=== PATIENT | female | born 1950 | race Caucasian/White ===

== ENCOUNTER 2016-07-19 16:32 | Emergency (ER) | payer MEDICARE ==
[~2016-07-19] VITALS: Ht 157.5 cm; Wt 52.3 kg
[~2016-07-19 16:32] MED LIST: ASPI81TA2 PO; CARV25T PO; CLOP75TA14 PO; GABA600T PO; LOVA40TA PO; MULT-892 PO; OXYC-176 PO
[2016-07-19 17:40] VITALS: BP 137/81; PULSE 73; RESP 20; O2SAT 94
--- NOTE | 2016-07-19 19:29 | ED.REPORT ---
HPI-Dyspnea / Wheezing Date of Service Jul 19, 2016 ED Provider: Sung Roca MD Pt is a 65 y/o female w/ a hx of COPD, HTN, current every day smoking, presenting to the ED c/o SOB onset 4 days ago. The patient saw her PCP 2 weeks ago due to cough and dyspnea and was treated for community acquired pneumonia with a z-pack after positive chest x-ray. The patient has continued to be short of breath with a dry cough, chills, wheezing. Pt denies fever, nausea, vomiting , diarrhea. The patient had a 1 week episode of hemoptysis in May which was not evaluated at that time. Her COPD is treated only with an albuterol inhaler as needed. She also had an abscess on her posterior scalp that was treated a few days ago at [facility]. She was placed on Clindamycin for that skin infection. Nursing Notes Stated Complaint: POSS PNEUMONIA Chief Complaint: Respiratory Complaints Nursing Notes Reviewed: Yes Allergies: Coded Allergies: codeine (Verified Adverse Reaction, Intermediate, nausea and vomiting, 25/04) hydrochlorothiazide (Verified Adverse Reaction, Intermediate, hyponatremia , 03/25/11) Uncoded Allergies: crab (Allergy, Severe, swelling, 03/25/11) Scheduled Aspirin-Expunged Drug, Do Not Renew! (Aspirin-Expunged Drug, Do Not Renew!) 81 Mg Tablet 81 MG PO DAILY Carvedilol-Expunged Drug, Do Not Renew! (Carvedilol-Expunged Drug, Do Not Renew! ) 25 Mg Tablet 25 MG PO BID Clopidogrel-Expunged Drug, Do Not Renew! (Plavix-Expunged Drug, Do Not Renew!) 75 Mg Tablet 75 MG PO DAILY Gabapentin-Expunged Drug, Do Not Renew! (Neurontin-Expunged Drug, Do Not Renew! ) 600 Mg Tablet 600 MG PO BID AM & NOON Gabapentin-Expunged Drug, Do Not Renew! (Neurontin-Expunged Drug, Do Not Renew! ) 600 Mg Tablet 900 MG PO HS Lovastatin-Expunged Drug, Do Not Renew! (Lovastatin-Expunged Drug, Do Not Renew! ) 40 Mg Tablet 40 MG PO DAILY Multivitamin (Daily Value) 1 Each Tablet 1 EACH PO DAILY Oxycodone/APAP-Expunged Drug, Do Not Renew! (Percocet 5/325-Expunged Drug, Do Not Renew!) 1 Each Tablet 1 TAB PO PRN Prednisone (PredniSONE) 20 Mg Tablet 40 MG PO DAILY General Time Seen by MD: 19:27 Chief Complaint Shortness of breath Hx Obtained From: Patient Arrived By: Walk-in Sudden in Onset?: No Onset Occurred: 3 days ago Symptom Duration: Since onset Severity: Current: No pain currently Severity: Maximum: No pain Recent Healthcare: Previous diagnosis Similar Sx Previous: Yes Past Medical History Past Medical History Hypertension COPD Anxiety Depression Past Surgical History Partial hysterectomy Neck Tubal ligation "Stent placed in leg" Smoking History Current Every Day Smoker Social History Drug Use: Denies drug use Ambulatory Status Independent Review of Systems Constitutional: Reports: Chills, Denies: Fever Respiratory: Reports: Non-productive cough, Shortness of breath, Wheezing Cardiovascular: Denies: Chest pain Complete sys rev & neg: except as marked. GI: Denies: Diarrhea, Nausea, Vomiting Physical Exam Initial Vital Signs Vital Signs (First) Date Time Temp Pulse Resp B/P Pulse Ox O2 Delivery O2 Flow Rate FiO2 07/19/16 17:40 36.3 73 20 137/81 94 Room Air Initial VS: Reviewed, Vital signs normal Head / Eyes: Atraumatic, Normocephalic, PERRL ENT: Mucous membranes moist, Conjunctiva normal, No scleral icterus Abdomen / GI: Soft, Non-tender Extremities: Vascular intact, Neuro intact, No swelling, No tenderness Skin: Warm, Dry, No cyanosis Neurologic: Alert, Oriented, Nonfocal Psychiatric: Mood/affect normal, Behavior normal, Normal thought content General/Constitutional: Awake, Alert, No acute distress, Cooperative, Not toxic appearing Neck: Atraumatic, Supple, No meningismus, Full range of motion Respiratory / Chest: Atraumatic, No respiratory distress, No retractions, No stridor, No chest tenderness, No chest wall deformity, No crepitus Faint inspiratory wheezing Distant lung sounds No dullness to percussion Cardiovascular: Heart rate NL, Regular rhythm, Heart sounds NL, No gallop, No murmurs, No rubs, Cap refill not delayed, Peripheral circulation NL Interpretation & Diagnostics X-Ray Chest Interpretation View: Portable, AP & lat Interpretation / Wet Read by: Wet read ED physician Reviewed Previous Films: No change NL X-Ray Chest Findings: No acute disease Re-Eval/Medical Decision Med Decision/Clinical Course Albuterol prescription written as well. Re-Evaluation/Progress : Time of Eval: 20:51 Re-Evaluation/Progress Note: Pt rechecked. Informed pt of plan for treatment. Pt understands and agrees with plan for treatment. F/U instructions and RTER warnings given. All questions addressed. Counseled Regarding: Diagnosis, Need for follow-up, When/why to return to ED Discharge & Departure Impression: Primary Impression: COPD exacerbation Disposition: Home Discharge Condition All VS Reviewed: Yes Condition: Stable Patient Instructions: Emphysema (ED) Additional Instructions: If you do not quit smoking you should expect your cigarette smoking to kill you. I believe that your symptoms are more likely from exacerbation of your COPD than new or undertreated pneumonia. Your chest x-ray does not show convincing pneumonia and is no worse than it was last week. Take prednisone 40 mg a day for 5 days. Follow-up at the clinic Monday or Monday to reassess. Call for an appointment tomorrow. Referrals: Abbey Jonas (PCP) Steveibe Attestation Portions of this note were transcribed by Akil Burns. I, Dr. Roca personally performed the history, physical exam and medical decision-making; I reviewed and confirmed the accuracy of the information in the transcribed note. Signed by Kassidy Robbins, 07/19/161939 copies to: Abbey Jonas Kirk H MD Jul 19, 2016 19:29 AKIL BURNS Jul 19, 2016 19:40
[2016-07-19] MEDS ORDERED: PRE20 PO (20:50)
[2016-07-19] MEDS ORDERED: predniSONE 20 mg Tablet PO ONE (20:50)
[2016-07-19 21:10] VITALS: BP 137/88; PULSE 70; RESP 16; O2SAT 95
[2016-07-19 21:16] VITALS: BP 1/88; PULSE 70; RESP 16; O2SAT 95
--- NOTE | 2016-07-19 21:28 | DRSVH ---
PROCEDURE: X-RAY CHEST, TWO VIEWS ([id number]) INDICATIONS: dyspnea TECHNIQUE: 2 views of the chest were acquired. COMPARISON: [facility], CR, XR CHEST 2VW, 07/01/2016, 16:09. [facility], C R, CHEST 2VW, 08/29/2013, 10:36. [facility], CR, XR CHEST 2VW, 07/13/2016, 9:29. FINDINGS: Surgical changes and devices: Lower cervical spine fusion. Lungs and pleura: Right basilar opacity may be consolidation or atelectasis. It appears unchanged fr om 07/13/1016. No pleural effusions or pneumothorax. Mediastinum: Mediastinal contours are normal. Heart size is normal. Bones and chest wall: No suspicious bony abnormalities. Soft tissues appear unremarkable. IMPRESSION: Stable right basilar opacity may be consolidation or atelectasis. Dictated by: Beverly Florentino M.D. on 07/19/2016 at 21:25 Approved by: Beverly Florentino M.D. on 07/19/2016 at 21:26
[2016-08-25] MEDS ORDERED: CARB1TAB14 PO (13:17)
[2016-08-25] MEDS ORDERED: ATOR80TA PO (13:17)
[2016-08-25] MEDS ORDERED: AGM875T PO (13:17)
[2016-08-25] MEDS ORDERED: PRE20 PO (13:17)
[2016-08-25] MEDS ORDERED: ALBU8.5H2 INHALATION (13:17)
[2016-08-31] MEDS ORDERED: PRE20 PO (08:07)
[2016-08-31] MEDS ORDERED: ASPI-973 PO (08:07)
[2016-08-31] MEDS ORDERED: ALBU2.5V4 INHALATION (08:07)
[2016-08-31] MEDS ORDERED: ATOR80TA PO (08:07)
[2016-08-31] MEDS ORDERED: CHOL5000 PO (08:07)
[2016-08-31] MEDS ORDERED: CARV25TA2 PO (08:07)
[2016-08-31] MEDS ORDERED: GABA600T2 PO (08:07)
[2016-08-31] MEDS ORDERED: MULT-1018 PO (08:07)
[2016-08-31] MEDS ORDERED: AGM875T PO (08:07)
[2016-08-31] MEDS ORDERED: ALBU8.5H2 INHALATION (08:07)
[2016-08-31] MEDS ORDERED: CYAN250014 PO (08:07)
[2016-08-31] MEDS ORDERED: TIOT4MIS5 IH (08:07)
[2016-08-31] MEDS ORDERED: CLOP75TA3 PO (08:07)
[2016-09-09] MEDS ORDERED: CARBIDOPA-LEVODOPA PO (17:10)
[2016-09-09] MEDS ORDERED: TIOT4MIS2 IH (17:10)
[2016-09-09] MEDS ORDERED: AGM875T PO (17:10)
[2016-09-09] MEDS ORDERED: PRE20 PO (17:10)
[2016-09-20] MEDS ORDERED: CARB1TAB14 PO (07:40)
[2016-09-20] MEDS ORDERED: ONDA-54 PO (07:40)
[2016-09-21] MEDS ORDERED: LORA0.5T PO (09:24)
[2016-09-23] MEDS ORDERED: ASPI-973 PO (12:13)
[2016-09-23] MEDS ORDERED: CLOP75TA3 PO (12:13)
[2016-10-04] MEDS ORDERED: ROPI0.252 PO (09:56)
== END 2016-07-19 21:18 | disposition home or self-care (01) ==
LOC: SED 16:32
DX: J44.1 Chronic obstructive pulmonary disease with (acute) exacerbation (principal); I10 Essential (primary) hypertension; J45.909 Unspecified asthma, uncomplicated; F17.200 Nicotine dependence, unspecified, uncomplicated; Z87.01 Personal history of pneumonia (recurrent); Z87.2 Personal history of diseases of the skin and subcutaneous tissue; Z79.82 Long term (current) use of aspirin; Z88.8 Allergy status to other drugs, medicaments and biological substances; Z88.5 Allergy status to narcotic agent
CPT/HCPCS: 71020; 99284; G0463

== ENCOUNTER 2016-09-01 11:12 | Day surgery (SDC) | payer MEDICARE ==
[~2016-09-01] VITALS: Ht 157.5 cm; Wt 49.9 kg
[~2016-09-01 11:12] MED LIST changes: +AGM875T PO; +ALBU2.5V4 INHALATION; +ALBU8.5H2 INHALATION; +ASPI-973 PO; -ASPI81TA2 PO; +ATOR80TA PO; -CARV25T PO; +CARV25TA2 PO; +CHOL5000 PO; -CLOP75TA14 PO; +CLOP75TA3 PO; +CYAN250014 PO; -GABA600T PO; +GABA600T2 PO; -LOVA40TA PO; +MULT-1018 PO; -MULT-892 PO; -OXYC-176 PO; +PRE20 PO; +TIOT4MIS5 IH
[2016-09-01] MEDS ORDERED: EPINEPHrine 0.1 mg/mL 10 mL Syringe IV ONE (11:13)
[2016-09-01 11:51] VITALS: BP 103/66; PULSE 72; RESP 16; O2SAT 96
[2016-09-01] MEDS ORDERED: 0.9% Sodium Chloride 1,000 ML IV SCH (12:00)
[2016-09-01] MEDS ORDERED: Lidocaine PF 2% 5 mL Inj MUC_MEMBRM PRN (12:00)
[2016-09-01] MEDS ORDERED: Lidocaine PF 2% 5 mL Inj MUC_MEMBRM SCH (12:00)
[2016-09-01] MEDS ORDERED: Lidocaine Topical 2% 30 mL Jelly MUC_MEMBRM PRN (12:00)
[2016-09-01] MEDS ORDERED: Lidocaine PF 2% 10 mL Inj ONE (12:00)
[2016-09-01] MEDS ORDERED: fentaNYL-PF 50 mCg/mL 2 mL Inj IVPUSH PRN (12:00)
[2016-09-01 12:46] VITALS: BP 105/64; PULSE 88; RESP 16; O2SAT 91
[2016-09-01 12:56] VITALS: BP 93/63; PULSE 83; RESP 14; O2SAT 94
[2016-09-01 13:06] VITALS: BP 101/68; PULSE 85; RESP 16; O2SAT 92
[2016-09-01 13:15] VITALS: BP 108/69; PULSE 73; RESP 16; O2SAT 93
--- NOTE | 2016-09-01 15:05 | DRSVH ---
PROCEDURE: X-RAY CHEST ONE VIEW, PORTABLE ([id number]) INDICATIONS: R/O PNEUMOTHORAX TECHNIQUE: One view of the chest was acquired. COMPARISON: [facility], CR, XR CHEST 2VW, 07/19/2016, 20:24. FINDINGS: Surgical changes and devices: Cervical fixation plates. Lungs and pleura: No pleural effusions or pneumothorax. Lungs are clear. Mediastinum: Mediastinal contours appear normal. Heart size is normal. Bones and chest wall: No suspicious bony lesions. Overlying soft tissues appear unremarkable. IMPRESSION: No acute pulmonary process. Dictated by: Mahogany Barcenas M.D. on 09/01/2016 at 13:59 Approved by: Mahogany Barcenas M.D. on 09/01/2016 at 14:03
--- NOTE | 2016-09-02 00:51 | ENDO ---
[address] [address] ENDOSCOPY PROCEDURE PATIENT: MERLINE VARGAS : 1950 MR#: [id number] ADMIT: 09/01/2016 JOB ID: [id number] DATE OF SERVICE: 09/01/2016 PROCEDURE PERFORMED:Bronchoscopy with biopsies Performed by: by Lucrecia Corea MD, Pulmonary Medicine. INDICATION: Right lower lobe lung mass. Informed consent was obtained from the patient after risks and benefits of the procedure including pneumothorax and bleeding were discussed. The patient had stopped her Plavix seven days prior to the procedure as discussed at her outpatient visit. DESCRIPTION OF PROCEDURE: The patient was asked to gargle lidocaine. Additional lidocaine was administered via atomizer. IV sedation was then administered. Bite block was placed and scope was passed through the mouth. Epiglottis and vocal cords were visualized and normal in appearance. There is a small white patch on the right vocal cord that is not of any significance. Additional lidocaine was administered and scope was passed through the cords into the trachea. Trachea was normal in appearance as was pratibha. A complete bilateral airway inspection was performed. Left-sided airways were completely normal in appearance and patent without any endobronchial lesions or masses. On the right side, however, immediately in the right main stem, there was significant airway occlusion visible. There was a friable appearing mass protruding into the bronchus intermedius that seemed to almost extend up to the right upper lobe and cause near-complete occlusion. The scope could not be passed through the bronchus intermedius or into the right upper lobe because of this mass. We then proceeded to do biopsies of this. At least 10-14 good sized biopsy samples were obtained with some bleeding as expected. Bleeding subsided with recurrent doses of topical epinephrine solution. The patient tolerated the procedure reasonably well except for coughing which is expected. FINDINGS: Large endobronchial mass occluding the bronchus intermedius and partly occluding the right upper lobe airway. SAMPLES: 10-12 endobronchial biopsies of the mass obtained. Medications: MIdazolam 3mg Fentanyl 75 Mcg Epinephringe 4cc topical COMPLICATIONS: Coughing. BLEEDING: Less than 10 cc. Postprocedure chest x-ray is pending at this time. [facility]
--- NOTE | 2016-09-05 14:54 | PATH ---
SURGICAL PATHOLOGY Attending Physician:Lucrecia Corea MD CASE STATUS: Signed Out PATIENT NAME: MERLINE VARGAS PID: [id number] : 1950 DATE COLLECTED:09/01/2016 21:45 SPECIMEN: Lung Biopsy CLINICAL HISTORY: RIGHT LOWER LOBE, LUNG MASS SMOKER WITH LUNG MASS; HIGH SUSPICION MALIGNANCY 1). RIGHT LOWER LOBE LUNG BIOPSIES FINAL DIAGNOSIS: 1.RIGHT LOWER LOBE, LUNG MASS, BIOPSY: NEUROENDOCRINE (SMALL CELL) CARCINOMA. ICD10 CODE C34 GROSS DESCRIPTION: The specimen is received in one formalin filled container labeled with the patient's name, sublabeled "right lower lobe of lung" and consists of multiple portions of tissue which aggregate to 0.5 x 0.5 x 0.2 CM. The specimen is entirely submitted in one cassette. 09/01/2016 [facility] MICRO DESCRIPTION: Solid nests of small to medium-sized malignant cells infiltrate the pulmonary parenchyma. Immuncytochemistry is done to characterize the tumor. Sections, along with appropriate controls, are incubated with the following antibodies: Synaptophysin:Positive Chromogranin:Positive CK7:Positive P40:Negative CK5/6:Negative CK20:Negative The findings are consistent with neuroendocrine carcinoma. This test was developed and its performance characteristics determined by [employer]. It has not been cleared or approved by the U. S. Food and Drug Administration. The FDA has determined that such clearance or approval is not necessary. This test is used for clinical purposes. It should not be regarded as investigational or for research. ICD-9 CODES: CPT CODES: 1: 43101, 28693, 42600, 12762, 27739, 95985, 21297 Electronically Signed Out Tommy Samano MD [facility] [address], [place] [address] Technical component performed at [facility], [address], [place], [address]
[2016-09-09] MEDS ORDERED: CARBIDOPA-LEVODOPA PO (17:10)
[2016-09-09] MEDS ORDERED: TIOT4MIS2 IH (17:10)
[2016-09-09] MEDS ORDERED: PRE20 PO (17:10)
[2016-09-09] MEDS ORDERED: AGM875T PO (17:10)
[2016-09-20] MEDS ORDERED: ONDA-54 PO (07:40)
[2016-09-20] MEDS ORDERED: CARB1TAB14 PO (07:40)
[2016-09-21] MEDS ORDERED: LORA0.5T PO (09:24)
[2016-09-23] MEDS ORDERED: ASPI-973 PO (12:13)
[2016-09-23] MEDS ORDERED: CLOP75TA3 PO (12:13)
[2016-10-04] MEDS ORDERED: ROPI0.252 PO (09:56)
== END 2016-09-01 23:59 | disposition home or self-care (01) ==
LOC: END 11:12
PROVIDERS: ATTEND Internal Medicine Critical Care Medicine
DX: C34.31 Malignant neoplasm of lower lobe, right bronchus or lung (principal); Z87.891 Personal history of nicotine dependence; I73.9 Peripheral vascular disease, unspecified; I10 Essential (primary) hypertension; J44.9 Chronic obstructive pulmonary disease, unspecified; I65.29 Occlusion and stenosis of unspecified carotid artery; I44.7 Left bundle-branch block, unspecified; M19.90 Unspecified osteoarthritis, unspecified site; Z79.82 Long term (current) use of aspirin; Z79.02 Long term (current) use of antithrombotics/antiplatelets; Z79.51 Long term (current) use of inhaled steroids
CPT/HCPCS: 31625; 71010; 99153; G0500; J0171; J2250; J3010; J7030

== ENCOUNTER 2016-09-14 11:32 | Day surgery (SDC) | payer MEDICARE ==
[~2016-09-14] VITALS: Ht 157.5 cm; Wt 49.0 kg
[2016-09-14] VITALS (7 sets, daily range): BP systolic 160–181; BP diastolic 74–90; PULSE 63–70; RESP 12–16; O2SAT 92–100
[~2016-09-14 11:32] MED LIST changes: +CARBIDOPA-LEVODOPA PO; +CeFAZolin Inj 2 GM in IV Premix 1 EACH IV ONE; +TIOT4MIS2 IH; -TIOT4MIS5 IH
[2016-09-14] MEDS ORDERED: fentaNYL-PF 50 mCg/mL 2 mL Inj ONE (11:33)
[2016-09-14] MEDS ORDERED: Propofol 10,000 mCg/mL 20 mL Inj ONE (11:33)
[2016-09-14] MEDS ORDERED: Dexamethasone 4 mg/mL Inj ONE (11:33)
[2016-09-14] MEDS ORDERED: Lidocaine PF 1% 30 mL Inj ONE (11:33)
[2016-09-14] MEDS ORDERED: Ondansetron 2 mg/mL 2 mL Inj ONE (11:33)
[2016-09-14] MEDS: Lactated Ringer's 1,000 ML IV SCH ×2 (11:52→12:42)
[2016-09-14] MEDS ORDERED: OXYC5CAP4 PO (11:55)
[2016-09-14] MEDS ORDERED: POTA20TA7 PO (11:55)
[2016-09-14] MEDS ORDERED: CeFAZolin Inj 2 gm / 50mL D5W IV ONE (11:57)
--- NOTE | 2016-09-14 12:39 | PCM.HPANE ---
Patient Data Date of Service: Sep 14, 2016 Surgeon Admitting Provider: Attending Provider:Sanaz Farmer MD Primary Care Physician:Salima Smallwood Other Provider:Nikolay Boothe Anesthesia Reason for Visit Lung Cancer Ht/WT & BMI Height (Feet): 5 Height (Inches): 2 Weight (Kilograms): 48.988 Body Mass Index 19.00 Allergies Coded Allergies: morphine (Verified Allergy, Unknown, NAUSEA, 09/14/16) codeine (Verified Adverse Reaction, Severe, nausea and vomiting, 09/09/16) hydrochlorothiazide (Verified Adverse Reaction, Severe, hyponatremia, 09/09) Uncoded Allergies: crab (Allergy, Severe, swelling, 03/25/11) Past Anesthesia History Anesthesia History: Denies:: Abnormal Airway (RECENT HX PNEUMOTHORAX), Anesthesia Reactions, Difficult Intubation, Fam Anesthesia Reaction, Fam Malignant Hypertherm, Malignant Hyperthermia Diabetes History Hx Diabetes?: No MRSA MRSA: No Medications Blood Thinner: Aspirin, Plavix Home Meds Incl Beta Angel: Yes (COREG) Date Beta Angel Taken: Sep 14, 2016 Time Beta Angel Taken: 729 Reported Medications oxyCODONE 5 Mg Capsule5 Mg PO Q3H PRN For Pain Ref 0 09/14/16 Potassium Chloride ER (Klor-Con M20)20 Meq Ymftpt46 Meq PO DAILY Ref 0 09/14/16 [Carbidopa-Levodopa] No Conflict Check1 Tab PO HS 25-100 09/09/16 Albuterol HFA (Proair HFA)8.5 Gm Hfa.aer.ad2 Puffs INHALATION Q4H #1 INHALER 08/31/16 Clopidogrel Bisulfate (Plavix)75 Mg Jziebz25 Mg PO DAILY 30 Days Ref 0 08/31/16 Gabapentin 600 Mg Omesfu558 Mg PO TID Ref 0 08/31/16 Carvedilol 25 Mg Cyvpea95 Mg PO BID Ref 0 08/31/16 Atorvastatin (Lipitor)80 Mg Jrbwlk80 Mg PO DAILY Ref 0 08/31/16 Aspirin 81 Mg Iitbup05 Mg PO DAILY Ref 0 08/31/16 Albuterol Neb Soln 2.5 Mg/3 Ml Vial.neb2.5 Mg INHALATION Q4H PRN For Shortness of Breath Ref 0 08/31/16 Discontinued Reported Medications Amoxicillin/Clav K 875-125 mg 875 Mg Tab1 Tablet PO BID #20 TABLET Ref 0 09/09/16 Prednisone (PredniSONE)20 Mg Lrlauy21 Mg PO DAILY Ref 0 09/09/16 Tiotropium [place] (Spiriva Respimat)4 Gm Mist.inhal2 Puffs IH BID 09/09/16 Cholecalciferol (Vitamin D3) (Vitamin D3)5,000 Unit Capsule5,000 Unit PO DAILY 08/31/16 Cyanocobalamin (Vitamin B-12) (Vitamin B12)2,500 Mcg Tab.mmkm102 Mcg PO DAILY 08/31/16 Multivitamin (Multi Vitamin Daily)1 Each Tablet1 Each PO DAILY 30 Days Ref 0 08/31/16 History History of ENT Problems?: No HEENT History: Positive for:: Dysphagia Denies:: Abnormal Airway (RECENT HX PNEUMOTHORAX) Difficult Intubation Hearing Problem Hx of Heart Problems?: Yes Cardiovascular History: Positive for:: Hypertension (HYPERLIPIDEMIA) Peripheral Vascular (PADS/PVD) Denies:: AICD Atrial Fibrillation Chest Pain Congestive Heart Failure Heart Murmur Pacemaker Valvular Heart Disease Other Cardiac History: S/P LT COMMON ILIAC & LT SUPERFICIAL FEMORAL ARTERY ANGIOPLASTY/STENTING NON-CRITICAL B/L CAROTID STENOSIS C/OF BRUISING EASILY Hx of Respiratory Problem?: Yes Respiratory History: Positive for:: COPD (MOD. 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 (PSORIASIS) Denies:: Pressure Ulcers Hx Musculoskeletal Problems?: No Musculoskeletal History: Positive for:: Musculoskeletal Trauma (HX WORK- RELATED INJURY TO NECK) Osteoarthritis Denies:: Joint Replacement Hx of Psycho/Social Problems?: Yes Psycho Social History: Positive for:: Anxiety Hx Depression Hx Surgeries?: Yes (LLE VASCULAR ANGIOPLASTY W/ STENTING,CRANIOTOMY/CLIPPING X2 W/ POSTOP ABCES) Hx Any Other Health Problems?: Yes Other History: Positive for:: Cancer (RT LUNG CA W/ LIVER METS) Hospitalization Denies:: Endocrine Disease (COLD INTOLERANCE) Thyroid Disease History Blood Transfusions: Denies:: Blood Transfuse Reaction Blood Transfusions Hx Diabetes: No Hx Alcohol Use: Yes (QUIT)Alcoholic Drinks Per Day: BEERHx Substance Use: No Smoking Status: Light Tobacco Smoker Have You Smoked inLast 12 mo: YesApprox How Many Cigarettes/day: 1/2 PPD X 48YRS Stop/Bang S-Snoring: Do You Snore Loudly: No T-Tired: feel tired, fatigued: Yes O-Obsered: Observed not breath: No P-Blood Pressure: treated: Yes B- Body Mass Index > 35 kg/m2: No A- Age over 50: Yes N- Neck Large Circumference: No G- Gender Male: No SONALI Total Score: 3 SONALI Risk Assessment: High Risk, =/>3 Yes Risk Assessment Category Category 1A: Patient has history of documented sleep apnea, and HAS NOT received any narcotic, sedative or anesthesia administration during this stay. Category 1B: Patient has history of documented sleep apnea, and HAS received any narcotic , sedative or anesthesia administration during this stay Category 2: Patient has SUSPECTED Obstructive Sleep Apnea, and HAS received any narcotic , sedative or anesthesia administration during this stay. Category 3: Patient has SUSPECTED Obstructive Sleep Apnea and HAS NOT received narcotic, sedative or anesthesia administration during this stay. Category 4: Outpatient in Procedural Areas with known sleep apnea or who screen positive for High Risk via the STOP/BANG questionnaire. Exam Exam General Appearance: Alert, Oriented X3, Cooperative, Mild Distress HEENT/AIRWAY: MP 2, Neck Movement (very limited) Lungs: Diminished, Coarse Heart: Exam Unremarkable Meds/Labs/Diagnostics Admission Meds Current Medications Lactated Ringer's (Lr) 1,000 ml @ 120 mls/hr Q8H20M IV Last administered on t 11:52; Start 09/14/16 at 05:00; Stop 09/14/16 at 13:19 Plan Impression Patient chart reviewed, patient interviewed and anesthestic plan with risks, benefits, and alternatives discussed, and informed consent obtained. NPO Status: 15 09/14 Josue Aleman MD Sep 14, 2016 11:59
[2016-09-14] MEDS ORDERED: HepLOK Flush 100 unit/mL 5 mL Inj IVFLUSH ONE (12:42)
[2016-09-14] MEDS ORDERED: Bupivacaine-MPF 0.25%/EPI 30 mL Inj INJ ONE (12:42)
[2016-09-14] MEDS ORDERED: Lactated Ringer's 500 ML IV PRN (13:07)
[2016-09-14] MEDS ORDERED: Lactated Ringer's 1,000 ML IV SCH (13:07)
[2016-09-14] MEDS ORDERED: EPHEDrine Sulfate 50 mg/mL Inj IVPUSH PRN (13:10)
[2016-09-14] MEDS ORDERED: Ondansetron 2 mg/mL 2 mL Inj IVPUSH PRN (13:10)
[2016-09-14] MEDS ORDERED: Atropine 0.4 mg/mL Inj IVPUSH PRN (13:10)
[2016-09-14] MEDS ORDERED: Labetalol 5 mg/mL 4 mL Inj IV PRN (13:10)
[2016-09-14] MEDS ORDERED: MetoCLOpramide 5 mg/mL 2 mL Inj IVPUSH PRN (13:10)
[2016-09-14] MEDS ORDERED: Dexamethasone 4 mg/mL Inj IVPUSH PRN (13:10)
[2016-09-14] MEDS ORDERED: Phenylephrine 10,000 mCg/mL Inj IVPUSH PRN (13:10)
[2016-09-14] MEDS ORDERED: fentaNYL-PF 50 mCg/mL 2 mL Inj IVPUSH PRN (13:10)
[2016-09-14] MEDS ORDERED: HYDROmorphone 1 mg/mL Inj IVPUSH PRN (13:10)
[2016-09-14] MEDS ORDERED: Albuterol-Ipratropium 3 mL Inhalation Solution NEB PRN (13:10)
--- NOTE | 2016-09-14 13:57 | PCM.ANEP1 ---
Post Anesthesia Phase 1 PACU Phase 1 Assessment Date of Service: Sep 14, 2016 Vital Signs Vital Signs Date Time Temp Pulse Resp B/P Pulse Ox O2 Delivery O2 Flow Rate FiO2 09/14/16 13:50 36.6 66 14 175/87 100 Nasal Cannula 4 09/14/16 12:03 37.4 70 16 160/90 94 Room Air Anesthetic Administered: GA Level of Alertness: Drowsy, not talking Pain: No Nausea or Vomiting: No Oxygen Delivery: Nasal Cannula Lungs: Diminished, Coarse Josue Aleman MD Sep 14, 2016 13:57
[2016-09-14] MEDS ORDERED: oxyCODONE-Acetamin 5-325 mg Tablet PO PRN (14:00)
--- NOTE | 2016-09-14 14:04 | PCM.SURGOP ---
Surgical Operative Report Date of Service: Sep 14, 2016 Pre Operative Diagnosis Metastatic lung cancer Post Operative Diagnosis Metastatic lung cancer Procedure: Right internal jugular port placement with ultrasound guidance with interpretation, with fluoroscopic guidance with interpretation. Surgeon and Senior Back End Java Developer: Surgeon: Sanaz Farmer M.D. 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 Chemotherapy was initiated, and therefore port placement was indicated. Findings: The port tip was at the cavoatrial junction at the end of the procedure. The port aspirated and flushed easily. It was flushed with 10 mL of heparin solution, 100U/mL, at the end of the case. It was left accessed because she had another chemotherapy infusion scheduled for tomorrow. Procedure Details The patient was brought to the operating room and placed in supine position. General anesthesia with a LMA was smoothly induced. Antibiotics were infused. A warming blanket and SCDs were placed. A pause was performed to confirm the correct patient, procedure, site, and side. The right internal jugular vein was identified with the ultrasound. It was then accessed with a single stick, and a wire was threaded. Upon advancing the wire, there was a small amount of resistance. Therefore, the wire was withdrawn. A second stick was used and the vein was accessed again; no resistance was encountered. Fluoroscopy confirmed the wires presence on the right side of the heart. The position of the tip of the wire at the cavoatrial junction was measured. A pocket was made in the tissue overlying the right pectoralis. The port was inserted and sewn into place with two interrupted Prolene stitches. It was then tunneled to the site of the wire using a small counter incision. The port catheter was then cut to the appropriate size as previously measured by the wires position on fluoroscopy. Dilation was then performed under fluoroscopic guidance. The sheath was left in place and the catheter was inserted. The sheath was removed and the two sides were found to be completely intact. The tip of the port was found to be positioned at the cavoatrial junction on fluoroscopy. The catheter was not kinked on fluoroscopy. The port aspirated and flushed easily at the end of the case. It was infused with 10 mL of 100 units/mL heparin solution. The subcutaneous tissue overlying the port was closed with a 3-0 Vicryl stitch. The skin at the port site, the wire access site, and counter incision was closed with a 4-0 subcuticular Monocryl stitch. Marcaine 0.5% with epinephrine was injected in the skin overlying the port as well as the stick site. The port was left accessed with a Daugherty needle. A sterile dressing was placed. The patient tolerated the procedure well, and was awakened from general anesthesia and taken to the postoperative care unit in good condition. Complications There were no periprocedural complications identified. Surgical Specimen Removed: No Specimen sent to Pathology: No Anesthetic Plan: GA Grafts, Implants: Implants-See Implant Record Output, Estimated Blood Loss: 2 (ml) Blood Administration during louis: No Sanaz Farmer MD Sep 14, 2016 14:04
--- NOTE | 2016-09-14 14:23 | PCM.ANEP2 ---
Post Anesthesia Evaluation ASA/CMS Post Anesthesia Date of Service: Sep 14, 2016 VS in Patient's Normal Range?: Yes Resp Stable; Airway Patent?: Yes CV Function & Hydration Stable: Yes Mental Status Recovered?: Yes Pain control Satisfactory?: Yes N/V Control Satisfactory?: Yes Josue Aleman MD Sep 14, 2016 14:23
--- NOTE | 2016-09-14 15:41 | DRSVH ---
PROCEDURE: X-RAY CHEST ONE VIEW, PORTABLE ([id number]) INDICATIONS: PORT TECHNIQUE: One view of the chest was acquired. COMPARISON: [facility], CT, CT CHEST ABD PELVIS W CON, 09/09/2016, 15:15. [facility], CR, XR CHEST 1VW (PORTABLE), 09/01/2016, 13:21. FINDINGS: Surgical changes and devices: There is been interval right-sided port placement with distal tip overl georgi the distal SVC/right atrial junction. Partially visualized cervical fixation plates are noted. Lungs and pleura: There is a persistent appearance of hazy opacity within the right base. Mediastinum: Mediastinal contours appear normal. Heart size is normal. Bones and chest wall: No suspicious bony lesions. Overlying soft tissues appear unremarkable. IMPRESSION: Interval port placement as above. Persistent right basilar opacity corresponding to appa rent atelectatic lung as seen on 09/09/16 CT examination. Dictated by: Mahogany Barcenas M.D. on 09/14/2016 at 15:36 Approved by: Mahogany Barcenas M.D. on 09/14/2016 at 15:40
[2016-09-20] MEDS ORDERED: ONDA-54 PO (07:40)
[2016-09-20] MEDS ORDERED: CARB1TAB14 PO (07:40)
[2016-09-21] MEDS ORDERED: LORA0.5T PO (09:24)
[2016-09-23] MEDS ORDERED: ASPI-973 PO (12:13)
[2016-09-23] MEDS ORDERED: CLOP75TA3 PO (12:13)
[2016-10-04] MEDS ORDERED: ROPI0.252 PO (09:56)
== END 2016-09-14 23:59 | disposition home or self-care (01) ==
LOC: SAS 11:32
PROVIDERS: ATTEND Surgery
PROC: 02HV33Z Insertion of Infusion Device into Superior Vena Cava, Percutaneous Approach (ICD-10-PCS; 2016-09-14)
PROC: B5181ZA Fluoroscopy of Superior Vena Cava using Low Osmolar Contrast, Guidance (ICD-10-PCS; 2016-09-14)
PROC: 0JH60XZ Insertion of Tunneled Vascular Access Device into Chest Subcutaneous Tissue and Fascia, Open Approach (ICD-10-PCS; principal; 2016-09-14 13:30)
DX: C34.01 Malignant neoplasm of right main bronchus (principal); C78.7 Secondary malignant neoplasm of liver and intrahepatic bile duct; F17.210 Nicotine dependence, cigarettes, uncomplicated; J44.9 Chronic obstructive pulmonary disease, unspecified; I70.202 Unspecified atherosclerosis of native arteries of extremities, left leg; Z95.820 Peripheral vascular angioplasty status with implants and grafts; Z98.890 Other specified postprocedural states; Z79.02 Long term (current) use of antithrombotics/antiplatelets; Z79.52 Long term (current) use of systemic steroids; Z79.82 Long term (current) use of aspirin